=== PATIENT | male | born 2000 | race Caucasian/White ===

== ENCOUNTER 2023-08-22 13:25 | Emergency (ER) | payer OTHER ==
[2023-08-22 13:46] VITALS: BP 122/66; PULSE 81; RESP 16; TEMP 97.3; BMI 16.7
== END 2023-08-22 14:57 | disposition home or self-care (01) ==
LOC: FER 13:25
DX: H92.01 Otalgia, right ear (principal); H61.23 Impacted cerumen, bilateral
CPT/HCPCS: 99283-25